=== PATIENT | female | born 1970 | race Two or more races ===

== ENCOUNTER 2020-01-05 14:28 | Inpatient (IN) | payer OTHER ==
[~2020-01-05] VITALS: Ht 160 cm; Wt 79.4 kg
[2020-01-08] MEDS ORDERED: FAMOTIDINE20 MG PO (09:05)
[2020-01-08] MEDS ORDERED: HYOSCYAMINE0.125 M1 SL (09:05)
== END 2020-01-08 15:17 | disposition home or self-care (01) | DRG 392 ==
LOC: ER 14:28 → SEC-K 21:03 → MEDI 21:03
PROVIDERS: ADMIT Internal Medicine Cardiovascular Disease
PROC: BW21ZZZ Computerized Tomography (CT Scan) of Abdomen and Pelvis (ICD-10-PCS; principal; 2020-01-06)
DX: K57.32 Diverticulitis of large intestine without perforation or abscess without bleeding (principal)